=== PATIENT | female | born 1995 | race Two or more races ===

== ENCOUNTER 2018-01-20 17:48 | Outpatient (CLI) | payer OTHER | END 2018-01-20 20:05 | disposition home or self-care (01) | LOC: M LDO 17:48 | DX: O26.893 Other specified pregnancy related conditions, third trimester (principal); N89.8 Other specified noninflammatory disorders of vagina; O47.1 False labor at or after 37 completed weeks of gestation; Z3A.38 38 weeks gestation of pregnancy | CPT/HCPCS: 59025 ==

== ENCOUNTER 2018-01-26 01:12 | Inpatient (IN) | payer OTHER ==
[2018-01-26 01:56] LABS: HEMOGLOBIN 8.8 g/dl (12.0-15.5); MEAN CORPUSCULAR HEMOGLOBIN 21.8 pg (27.0-33.0); MEAN CORPUSCULAR HGB CONC 30.3 g/dl (32.0-36.5); PLATELET COUNT, AUTOMATED 234 10^3/uL (150-450); RED BLOOD COUNT 4.03 10^6/uL (4.00-5.40); RED CELL DISTRIBUTION WIDTH 16.8 % (11.5-14.5); WHITE BLOOD COUNT 8.8 10^3/uL (4.0-10.0)
[2018-01-26] MEDS: LR 1,000 ML IV (02:07)
[2018-01-26] MEDS ORDERED: OXYTOCIN 30 UNITS IN 0.9% NaCl 500ML IV BAG (J2590) As Ordered (02:12)
[2018-01-26] MEDS ORDERED: FENTANYL 2MCG/ML ROPIVACAINE 0.2% IN 0.9% NACL 200ML IVBAG As Ordered (02:28)
[2018-01-26] MEDS ORDERED: EPIDURAL/PCA KEYS XX (02:35)
[2018-01-26] MEDS ORDERED: FENTANYL/ROPIVACAINE/NACL BAG 200 ML EPIDURAL (02:35)
[2018-01-26] MEDS ORDERED: NALOXONE INJ 0.4 MG/1 ML VIAL (J2310) IV (02:35)
[2018-01-26] MEDS ORDERED: REFRIGERATOR IV KEYS XX (02:35)
[2018-01-26] MEDS ORDERED: ONDANSETRON 4MG/2ML VIAL (J2405) IV (02:35)
[2018-01-26] MEDS ORDERED: diphenhydrAMINE INJ 50MG/ML VIAL (J1200) IV (02:35)
[2018-01-26] MEDS ORDERED: EPIDURAL COMMENT XX (02:35)
[2018-01-26] MEDS: LACTATED RINGER'S 1000 ML IV (04:00)
[2018-01-26] MEDS: ePHEDrine SULFATE 25 MG/5 ML(5MG/ML) SYRINGE IV (04:00)
[2018-01-26] MEDS: OXYTOCIN DRIP 30 UNITS in APPROPRIATE DILUENT 1 EA IV (05:26)
[2018-01-26] MEDS ORDERED: DIBUCAINE 1% OINTMENT 30GM TOP (05:30)
[2018-01-26] MEDS ORDERED: METOCLOPRAMIDE INJ 10MG/2ML VIAL (J2765) IV (05:30)
[2018-01-26] MEDS ORDERED: MEASLES,MUMPS,RUBELLA VACCINE INJ (MMR-II) (90707) SC (05:30)
[2018-01-26] MEDS ORDERED: RHOGAM 300 MCG (1500 IU) INJ (J2790) IM (05:30)
[2018-01-26] MEDS ORDERED: ACETAMINOPHEN TAB 650MG DOSE (2X325MG) PO (05:30)
[2018-01-26] MEDS: PRENATAL VITAMINS CHEWABLE TABLET PO (08:46)
[2018-01-26] MEDS: IBUPROFEN 800 MG TAB PO ×2 (08:46→19:57)
[2018-01-26] MEDS: DOCUSATE SODIUM 100 MG CAP PO ×2 (08:46→20:53)
[2018-01-27] MEDS: PRENATAL VITAMINS CHEWABLE TABLET PO (08:19)
[2018-01-27] MEDS: DOCUSATE SODIUM 100 MG CAP PO (08:19)
[2018-01-27] MEDS: IBUPROFEN 800 MG TAB PO (08:19)
== END 2018-01-27 12:05 | disposition home or self-care (01) | DRG 807 ==
LOC: M LDO 01:12 → M LDI 01:30 → M OBS 08:22
PROVIDERS: Obstetrics & Gynecology
PROC: 10E0XZZ Delivery of Products of Conception, External Approach (ICD-10-PCS; principal; 2018-01-26)
PROC: 10907ZC Drainage of Amniotic Fluid, Therapeutic from Products of Conception, Via Natural or Artificial Opening (ICD-10-PCS; 2018-01-26)
PROC: 0HQ9XZZ Repair Perineum Skin, External Approach (ICD-10-PCS; 2018-01-26)
DX: O71.4 Obstetric high vaginal laceration alone (principal); Z37.0 Single live birth; Z3A.38 38 weeks gestation of pregnancy

== ENCOUNTER 2018-03-31 22:40 | Emergency (ER) | payer OTHER ==
[~2018-03-31] VITALS: Ht 160 cm; Wt 52.8 kg
[~2018-03-31 22:40] MED LIST: COLA100C5 PO; IBUP-1114 PO; MAPA500T2 PO; PRENTAB9 PO
[2018-03-31] MEDS ORDERED: PRED20TA PO (22:48)
[2018-03-31] MEDS ORDERED: HYDR1CRE TOP (22:48)
[2018-03-31] MEDS ORDERED: hydrOXYzine 25 MG TAB PO STA (23:10)
[2018-03-31] MEDS ORDERED: FAMOTIDINE 20 MG TAB PO ONE (23:15)
[2018-03-31] MEDS ORDERED: PEPC1TAB2 PO (23:53)
[2018-03-31] MEDS ORDERED: HYDR-3363 PO (23:53)
[2018-03-31 23:59] VITALS: BP 111/70
== END 2018-04-01 00:02 | disposition home or self-care (01) ==
LOC: M ED 22:40
DX: L50.1 Idiopathic urticaria (principal)

== ENCOUNTER → 2020-04-20 | Outpatient (CLI) | payer SELFPAY ==
[~2020-04-20] MED LIST changes: +HYDR-3363 PO; +HYDR1CRE TOP; +PEPC40TA12 PO; +PRED20TA PO
== END ==
LOC: M LABSMTC 10:43
PROVIDERS: ATTEND Pediatrics
DX: Z20.822 Contact with and (suspected) exposure to COVID-19 (principal)